=== PATIENT | male | born 1945 | race Caucasian/White ===

== ENCOUNTER → 2017-04-01 | Outpatient (CLI) | payer BC ==
--- NOTE | 2017-04-01 09:34 | DIAGNOSTIC IMAGING REPORT ---
RENAL ULTRASOUND CLINICAL HISTORY: Chronic kidney disease. COMPARISON STUDY: Renal ultrasound May 11, 2013. TECHNIQUE: Sonography of the kidneys and the urinary bladder was performed. FINDINGS: The right kidney measures 10.3 x 4 x 5.3 cm and the left measures 10.4 x 5.3 x 4 cm. There is no hydronephrosis. Renal echogenicity, size and cortical thickness are normal. There is a 2.8 cm left renal cyst. No calculi or solid masses are identified by sonography. Bladder is unremarkable. IMPRESSION: 1. No hydronephrosis. 2. 2.8 cm left renal cyst. 3. Normal renal echogenicity, size and cortical thickness. Electronically signed by: Jan Elliott M.D. 04/01/2017 9:32 AM Dictated Date/Time: 04/01/2017 9:31 AM
== END | disposition home or self-care (01) ==
LOC: C.ULTRBC 08:46
PROVIDERS: ATTEND Family Medicine
DX: Q23.1 Congenital insufficiency of aortic valve (principal); I25.10 Atherosclerotic heart disease of native coronary artery without angina pectoris; I12.9 Hypertensive chronic kidney disease with stage 1 through stage 4 chronic kidney disease, or unspecified chronic kidney disease; R73.09 Other abnormal glucose; N18.9 Chronic kidney disease, unspecified